=== PATIENT | male | born 1955 | race Caucasian/White ===

== ENCOUNTER 2017-10-19 09:56 | Day surgery (SDC) | payer OTHER ==
[2017-10-16 09:40] VITALS: BMI 29.8
[2017-10-19] MEDS ORDERED: BUPIVACAINE HCL/PF 2.5 MG/ML - 30 ML VIAL IJ ONE (12:55)
[2017-10-19] MEDS ORDERED: MIDAZOLAM HCL 2 MG/2 ML SINGLE DOSE VIAL ONE (13:07)
[2017-10-19] MEDS ORDERED: PROPOFOL 20 ML ONE ×2 (13:07)
[2017-10-19] MEDS ORDERED: SUCCINYLCHOLINE CHLORIDE 200 MG/10 ML VIAL ONE (13:08)
[2017-10-19] MEDS ORDERED: ceFAZolin SODIUM 1 GM VIAL ONE (13:11)
[2017-10-19] MEDS ORDERED: BUPIVACAINE HCL/PF 0.25% (2.5MG/ML) 10 ML VIAL IJ ONE (14:07)
[2017-10-19 16:13] VITALS: PULSE 68; TEMP 98
[2017-10-19 16:48] VITALS: BP 135/68
--- NOTE | 2017-10-22 19:58 | OP ---
DATE OF OPERATION: 10/19/2017 PREOPERATIVE DIAGNOSIS: 1. Left knee medial and lateral meniscal tear. 2. Left knee cartilage injury. 3. Left knee synovitis. POSTOPERATIVE DIAGNOSIS: 1. Left knee medial and lateral meniscal tear. 2. Left knee cartilage injury. 3. Left knee synovitis. PROCEDURE: 1. Left knee arthroscopy and partial meniscectomy, medial and lateral meniscus. 2. Left knee arthroscopy, chondroplasty and abrasion plasty. 3. Left knee arthroscopy and synovectomy MAJOR CPT CODES: 31738, 57736, [id number]. SURGEON: Chichi Valdez MD MEDICAID SERVICE COORDINATOR: DIANA Ponce FINDINGS: 1. Severe contraction across the patellofemoral joint causing restrictions of the patellofemoral joint. 2. Medial meniscus body and posterior horn tear. 3. Lateral meniscus diffuse tearing of the lateral meniscus. 4. Synovitis of patellofemoral medial and lateral notch area. 5. Large anterior spur, anteromedial tibial plateau. 6. No evidence of ACL. 7. Posterior labral fraying. 8. Posterior cruciate ligament fraying. 9. Multiple loose bodies. 10. Diffuse grade 4 cartilage injury, lateral joint line. 11. grade 2 to 4 cartilage injury at the patella, patellofemoral trochlea with thickened scar tissue along the medial and lateral retinaculum. PROCEDURE: Informed consent was obtained. The patient was taken to the operating room where the left lower extremity was prepped and draped in a sterile fashion. A tourniquet was placed on the left upper thigh but not inflated. Using standard arthroscopic technique, a lateral incision and portal were made which allowed for introduction of the camera into the suprapatellar bursa. This was then taken to the medial joint line where under direct visualization, a medial incision and portal were made. Excessive synovium noted in the medial, lateral, patellofemoral and notch area was removed by the up-biting shaver and Bovie cautery. This was found to bring inflammatory tissue into the joint surface, a source of joint pain and dysfunction. Probing of the medial and lateral meniscus found tears described in the findings. These were removed with an up-biting shaver and taken back to a stable rim. Grade 2-3 degenerative changes were treated with chondroplasty, removing all flaking surfaces with low setting Bovie used along the periphery. Grade 4 changes were treated with abrasion-plasty. All areas of the knee were once again re-examined. The knee was then drained. A single suture was placed on all portals. Sterile dressing was placed. The patient was transferred to the recovery room. ADDENDUM: Due to the extensive scarring along the retinacular release coming from the medial and lateral side, to allow for more motion across the patellofemoral joint and less restriction, taking the pressure off the damaged cartilage. CHICHI VALDEZ M.D. [id number]
--- NOTE | 2017-10-24 15:41 | PATH ---
Surgical Pathology Report Patient Name: HEATH ROWLEY Med. Rec. #: [id number] /Age/Gender: 1955 (Age: 62) / M Account: [id number] [facility] Taken: 10/19/2017 Received: 10/19/2017 Reported: 10/24/2017 Physicians: Adrien Pardo M.D. Specimen(s) Received LEFT KNEE SHAVINGS Clinical History Left knee internal derangement Final Diagnosis KNEE, LEFT, ARTHROSCOPIC SHAVINGS: FIBROSYNOVIAL TISSUE AND CARTILAGE. Electronically Signed Shari Angulo M.D. Gross Description Received in formalin, labeled "left knee shavings," is a 4.8 x 4.3 x 0.3 cm. aggregate of caballero-yellow soft tissue fragments. A personnel representative portion is submitted in one cassette. 10/23/201710/23/2017
== END 2017-10-19 16:00 | disposition home or self-care (01) ==
LOC: FASU 09:56 → EDBD 13:30 → FASU 16:00
PROVIDERS: ATTEND Orthopaedic Surgery
PROC: 0SBD4ZZ Excision of Left Knee Joint, Percutaneous Endoscopic Approach (ICD-10-PCS; 2017-10-19)
PROC: 0SBD4ZZ Excision of Left Knee Joint, Percutaneous Endoscopic Approach (ICD-10-PCS; principal; 2017-10-19 12:30)
DX: S83.242A Other tear of medial meniscus, current injury, left knee, initial encounter (principal); S83.282A Other tear of lateral meniscus, current injury, left knee, initial encounter; S83.8X2A Sprain of other specified parts of left knee, initial encounter; M65.862 Other synovitis and tenosynovitis, left lower leg; X58.XXXA Exposure to other specified factors, initial encounter; Y93.9 Activity, unspecified; Y92.9 Unspecified place or not applicable
CPT/HCPCS: 88304-TC; 94760

== ENCOUNTER 2019-01-23 05:49 | Inpatient (IN) | payer OTHER ==
[2019-01-13 12:07] VITALS: BMI 30.8
[~2019-01-23 05:49] MED LIST: CEFAZOLIN 2 GM in DEXTROSE 5%-WATER - 50 ML IVPB ONE; CELECOXIB 200 MG CAPSULE PO ONE; GABAPENTIN 300 MG CAPSULE (FP) PO ONE; PANTOPRAZOLE 40 MG TABLET (FP) PO ONE; TRANEXAMIC ACID 1000 MG/10 ML VIAL IVPUSH ONE; oxyCODONE HCL 10 MG SUSTAINED ACTING TABLET PO ONE
[2019-01-23] MEDS ORDERED: PANTOPRAZOLE 40 MG TABLET (FP) ONE (06:58)
[2019-01-23] MEDS ORDERED: CELECOXIB 200 MG CAPSULE ONE (06:59)
[2019-01-23] MEDS ORDERED: GABAPENTIN 300 MG CAPSULE (FP) ONE (06:59)
[2019-01-23] MEDS ORDERED: oxyCODONE HCL 10 MG SUSTAINED ACTING TABLET ONE (06:59)
[2019-01-23] MEDS ORDERED: PROPOFOL 20 ML ONE (07:11)
[2019-01-23] MEDS ORDERED: SUCCINYLCHOLINE CHLORIDE 200 MG/10 ML VIAL ONE (07:11)
[2019-01-23] MEDS ORDERED: ceFAZolin SODIUM 1 GM VIAL ONE ×4 (07:14→12:31)
[2019-01-23] MEDS ORDERED: VANCOMYCIN 1,000 MG VIAL (RESTRICTED TO ID ONLY) ONE ×2 (07:14→07:16)
[2019-01-23] MEDS ORDERED: TRANEXAMIC ACID 1000 MG/10 ML VIAL ONE ×4 (07:14→12:31)
[2019-01-23] MEDS ORDERED: MIDAZOLAM HCL 2 MG/2 ML SINGLE DOSE VIAL ONE ×3 (07:30→13:25)
[2019-01-23] MEDS ORDERED: BUPIVACAINE HCL/PF (5 MG/ML) 30 ML VIAL IJ ONE (07:31)
[2019-01-23] MEDS ORDERED: BUPIVACAINE LIPOSOME/PF (EXPAREL) 266 MG/20 ML VIAL ONE (07:31)
--- NOTE | 2019-01-23 07:49 | HP ---
Admitting History and Physical - Admission Chief Complaint: bilateral knee pain x years History of Present Illness: 63 year old male presents in regard to bilateral knees. Longstanding history of bilateral knee osteoarthritis. Patient complains of pain, limited ROM, difficulty ambulating and difficulty completing activities of daily living. Patient has failed conservative treatment measures including PO medications, activity modification, injections and an exercise program. At this point, patient would like to proceed with bilateral total knee arthroplasties, utilizing MAKOplasty. History Source: Patient - Past Surgical History Additional Past Surgical History: See written history and physical. - Advance Directives Advance Directives: Yes: Organ Donor - Smoking History Smoking history: Never smoked Have you smoked in the past 12 months: No - Alcohol/Substance Use Hx Alcohol Use: Yes (social) Home Medications - Allergies Allergies/Adverse Reactions: Allergies Allergy/AdvReac Type Severity Reaction Status Date / Time No Known Allergies Allergy Verified 01/13/19 12:00 - Home Medications Home Medications: Ambulatory Orders NK [No Known Home Medication] 01/13/19 Review of Systems - Review of Systems Musculoskeletal: reports: Crepitus (bilateral knees), Decreased ROM (bilateral knees), Joint Pain (bilateral knees), Joint Swelling (bilateral knees) Physical Examination Vital Signs: Vital Signs Temperature 97.7 F 01/23/19 06:35 Pulse Rate 56 L 01/23/19 06:35 Respiratory Rate 18 01/23/19 06:35 Blood Pressure 128/90 01/23/19 06:35 O2 Sat by Pulse Oximetry (%) Constitutional: Yes: Well Nourished, No Distress Eyes: Yes: Conjunctiva Clear HENT: Yes: Atraumatic, Normocephalic Neck: Yes: Supple Cardiovascular: Yes: Regular Rate and Rhythm Respiratory: Yes: Regular Gastrointestinal: Yes: Soft ...Rectal Exam: Yes: Deferred Musculoskeletal: Yes: Joint Stiffness (bilateral knees), Joint Swelling ( bilateral knees) Assessment/Plan 63 year old male presents in regard to bilateral knees. Longstanding history of bilateral knee osteoarthritis. Patient complains of pain, limited ROM, difficulty ambulating and difficulty completing activities of daily living. Patient has failed conservative treatment measures including PO medications, activity modification, injections and an exercise program. At this point, patient would like to proceed with bilateral total knee arthroplasties, utilizing MAKOplasty. Pros, cons, risks, benefits and alternatives of bilateral total knee arthroplasties using MAKOplasty was discussed with the patient at length. Patient confirms his understanding and consents to proceed with bilateral knee arthroplasties, utilizing MAKOplasty.
[2019-01-23] MEDS ORDERED: ONDANSETRON 4 MG/2 ML VIAL IVPUSH PRN ×2 (10:55→17:41)
[2019-01-23] MEDS ORDERED: oxyCODONE HCL 5 MG TABLET PO PRN ×2 (10:55)
[2019-01-23] MEDS ORDERED: LACTATED RINGERS SOLUTION 1,000 ML IV SCH ×2 (11:00→17:45)
[2019-01-23] MEDS ORDERED: VANCOMYCIN 1,000 MG VIAL (RESTRICTED TO ID ONLY) IVPB ONE ×2 (12:00→16:32)
[2019-01-23] MEDS ORDERED: TRANEXAMIC ACID 1000 MG/10 ML VIAL IVPUSH ONE ×2 (12:00→16:32)
[2019-01-23] MEDS ORDERED: BUPIVACAINE HCL/PF 0.5% (5MG/ML) 10 ML VIAL ONE (12:13)
[2019-01-23] MEDS ORDERED: ePHEDrine SULFATE 50 MG/1 ML AMPULE ONE (13:10)
[2019-01-23] MEDS ORDERED: KETOROLAC TROMETHAMINE 30 MG/1 ML VIAL ONE (17:22)
[2019-01-23] MEDS ORDERED: ACETAMINOPHEN INJECTION 100 ML IVPB ONE (17:22)
[2019-01-23] MEDS ORDERED: traMADol HCL 50 MG TABLET ONE (17:22)
[2019-01-23] MEDS: KETOROLAC TROMETHAMINE 30 MG/1 ML VIAL IVPUSH SCH (17:30)
[2019-01-23] MEDS ORDERED: ONDANSETRON 4 MG/2 ML VIAL ONE (17:30)
[2019-01-23] MEDS: traMADol HCL 50 MG TABLET PO SCH (17:30)
--- NOTE | 2019-01-23 17:40 | OP ---
Operative Note - Note: Operative Date: 01/23/19 Pre-Operative Diagnosis: Bilateral knee OA Operation: Bilateral BRYNN TKA Post-Operative Diagnosis: Same as Pre-op Surgeon: Real Barbosa Landscape Management Technician: Ana Brenner Anesthesia: Spinal Estimated Blood Loss (mls): 400
[2019-01-23] MEDS ORDERED: MAGNESIUM HYDROX 2400MG/30ML ORAL SUSPENSION 30 ML CUP PO PRN (17:41)
[2019-01-23] MEDS ORDERED: MAG HYDROX/AL HYDROX/SIMETH 30 ML UNIT-DOSE CUP PO PRN (17:41)
[2019-01-23] MEDS ORDERED: ACETAMINOPHEN 1000 MG/100 ML VIAL (NON FORMULARY) IVPB ONE (17:45)
[2019-01-23] MEDS: ACETAMINOPHEN 325 MG TABLET (FP) PO SCH ×3 (18:23→22:15)
[2019-01-23] MEDS: CEFAZOLIN 2 GM/D5W 2 GM/50 ML ML IVPB SCH (18:37)
[2019-01-23] MEDS ORDERED: DEXAMETHASONE SOD PHOSPHATE 10 MG/1 ML VIAL IVPB ONE (20:00)
[2019-01-23] MEDS: oxyCODONE HCL 10 MG SUSTAINED ACTING TABLET PO SCH (22:13)
[2019-01-23] MEDS: ASCORBIC ACID 500 MG TABLET (FP) PO SCH (22:14)
[2019-01-23] MEDS: ASPIRIN 325 MG TABLET PO SCH (22:14)
[2019-01-23] MEDS: CELECOXIB 200 MG CAPSULE PO SCH (22:15)
[2019-01-23] MEDS: SENNOSIDES/DOCUSATE COMBO (SENNA PLUS) TABLET (UD) PO SCH (22:15)
[2019-01-23] MEDS: GABAPENTIN 300 MG CAPSULE (FP) PO SCH (22:15)
[2019-01-24] MEDS: traMADol HCL 50 MG TABLET PO SCH ×4 (00:28→17:30)
[2019-01-24] MEDS: KETOROLAC TROMETHAMINE 30 MG/1 ML VIAL IVPUSH SCH ×4 (00:28→21:49)
[2019-01-24] MEDS: CEFAZOLIN 2 GM/D5W 2 GM/50 ML ML IVPB SCH (01:59)
[2019-01-24] MEDS: ACETAMINOPHEN 325 MG TABLET (FP) PO SCH ×4 (05:30→22:02)
--- NOTE | 2019-01-24 06:05 | SPEC ---
DATE OF OPERATION: 01/23/2019 PREOPERATIVE DIAGNOSIS: Bilateral knee osteoarthritis. POSTOPERATIVE DIAGNOSIS: Bilateral knee osteoarthritis. PROCEDURE: Bilateral total knee replacement with MAKOplasty robotic navigation. ATTENDING: Heath Yadav MD F[employer] BUYING INTERNS[employer]IP: DIANA Hein ANESTHESIA: Spinal plus sedation. ESTIMATED BLOOD LOSS: 400 mL. COMPLICATIONS: None. DISPOSITION: The patient was transferred to the PACU in stable condition. IMPLANTS USED: Bilateral size 6 Curtis Triathlon femoral components, bilateral size 7 Curtis Triathlon tibial components, bilateral 9-mm total stabilized polyethylene components, bilateral 35-mm patellar components. INDICATIONS: This is a 63-year-old male who presented to the office with severe bilateral knee pain. He had a history of a patellar tendon repair on the right and an ACL reconstruction on the left and multiple injuries. 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 The patient was therefore indicated for bilateral total knee replacements with MAKOplasty robotic navigation. The risks, benefits and alternatives to the procedure were explained to the patient in great detail and the patient elected to proceed with the surgery. On the day of surgery, the patient was taken to the operating room and placed on the OR table. Spinal anesthesia was administered by the anesthesiologist. The patient was then positioned supine on the table and all bony prominences were padded. The knee was then prepped and draped in the usual sterile fashion and intravenous antibiotics were given for infection prophylaxis. A surgical timeout was then performed with the team, and the patients identity, procedure, side, availability of implants and the administration of antibiotics was confirmed. With the knee flexed, a midline incision was made and carried down through the subcutaneous fat to the underlying retinaculum. A medial parapatellar arthrotomy was performed. This was followed by a subperiosteal dissection of the tissue off the proximal, medial tibia. A portion of fat pad was removed from under the patellar tendon, and a small portion of fat was excised off the distal supracondylar femur. Electrocautery and an Daojiaamantys bipolar sealing device were used to achieve hemostasis. The knee was then flexed further and the anterior horn of the lateral meniscus was released from the midline. Next, the anterior and posterior cruciate ligaments were transected. Grade 4 changes were noted diffusely throughout the knee. Femoral and tibial checkpoints were then placed in the appropriate location using a mallet. Two parallel bicortical self-drilling pins were placed in the tibial diaphysis after making stab incisions and bluntly dissecting down to bone. Two pins were then placed in the distal supracondylar femur. The AkeLex navigation arrays were then attached to both the femoral and tibial pins and the lower extremity was then registered to the robotic navigation device using various joint movements, as well as inputting several dozen reference points. The knee was then taken through a full range of motion with a corrective force applied. Alignment in varus/valgus as well as flexion/extension and soft tissue balance was measured in various positions. The navigation device showed a numerical and graphic representation of the soft tissue balance. The components were repositioned virtually using the software until optimal soft tissue balance was achieved on screen. Once this was accomplished, the final plan was saved and sent to the robot. Self-retaining retractors were then placed at the joint line for exposure and protection of the collateral ligaments. The robot was brought into the sterile field and registered with the navigation device. The robotic arm with attached oscillating saw blade was then used to perform femoral and tibial bone cuts as per the saved software plan. The femoral box cut was made using the appropriately sized manual cutting guide. The knee was then irrigated. Trial components were placed and the knee was taken through a full range of motion to assess soft tissue balance and alignment. The range of motion was found to be excellent and the soft tissue balance was optimal and according to plan. The knee was then put into extension and the patella everted. The synovium around the patella was circumscribed with electrocautery. A caliper was used to measure the patellar thickness and a saw was then used to resect the patella at the chondro-osseous junction. The cut surface was then sized and drilled for the appropriate patellar button, with care taken to medialize it. A trial patella was then placed and the knee was again taken through a full range of motion. The knee was found to have both good balance and good patellar tracking. All of the components were removed except the tibial base plate. The appropriate instrumentation was used to drill and punch the proximal tibia for the keel of the final component. All bony surfaces were then cleaned with pulsatile lavage and dried. Bone cement was then prepared on the back table, and final components were cemented in place in the usual fashion. Extruded cement was removed. The polyethylene trial was placed, the knee was put into extension and axial pressure was applied for compression while the cement hardened. The patellar button was similarly cemented into place. Once the cement had hardened, the knee was taken through a full range of motion to assess stability, balance and patellar tracking. This was found to be optimal and the trial polyethylene was exchanged for the appropriately sized real implant. The wound was then thoroughly irrigated with normal saline. A 3-minute dilute Betadine lavage was performed. The knee was again irrigated using a pulsatile lavage device. A periarticular injection was used to locally infiltrate the capsular tissues surrounding the implant and prosthesis. Then No. 1 Polysorb and 0 V-Loc 180 barbed sutures were used to close the arthrotomy. Then No. 1 Polysorb and 2-0 V-Loc 90 sutures were used in the subcutaneous tissues. Then 4-0 undyed Vicryl and Dermabond skin adhesive was used to close the stab incisions made for the navigation pins. The skin was closed using both 3-0 V-Loc 90 suture in a running subcuticular fashion and Dermabond skin adhesive. Once this was completed a sterile Aquacel dressing and compressive Carlos wrap was applied. The patient was then awakened and taken to the PACU in stable condition. ADDENDUM: A bilateral procedure was performed. The above procedure was performed identically on both sides. In between sides the patient was reprepped and redraped and entirely new sterile instrumentation was brought into the room. In addition, a new spinal was performed by the anesthesia team and this patient was straight catheterized and 700 mL of urine was withdrawn. HEATH YADAV M.D. [id number]
[2019-01-24 07:01] LABS: HEMATOCRIT 38.9 % (35.4-49); HEMOGLOBIN 13.1 GM/dl (11.7-16.9); MCH 32.6 pg (25.7-33.7); MCHC 33.7 g/dl (32.0-35.9); MEAN CELL VOLUME 96.9 fl (80-96); MEAN PLT VOLUME 8.1 fl (7.5-11.1); PLATELET COUNT 201 K/MM3 (134-434); RBC 4.02 M/mm3 (4.00-5.60); RDW 13.1 % (11.9-15.9); WHITE BLOOD COUNT 10.3 K/mm3 (4.0-10.8)
[2019-01-24 07:09] LABS: ANION GAP 9 MMOL/L (8-16); BLOOD UREA NITROGEN 18 mg/dl (7-18); CALCIUM 8.7 mg/dl (8.5-10); CHLORIDE 104 mmol/L (98-107); CO2 22 mmol/L (21-32); GLUCOSE,RANDOM 149 mg/dl (74-106); POTASSIUM 4.5 mmol/L (3.5-5.1); SODIUM 135 mmol/L (136-145)
[2019-01-24] MEDS: CELECOXIB 200 MG CAPSULE PO SCH ×2 (10:01→21:48)
[2019-01-24] MEDS: SENNOSIDES/DOCUSATE COMBO (SENNA PLUS) TABLET (UD) PO SCH ×2 (10:02→21:48)
[2019-01-24] MEDS: ASCORBIC ACID 500 MG TABLET (FP) PO SCH ×2 (10:02→21:48)
[2019-01-24] MEDS: MULTIVITAMINS (DAILY MVI) TABLET (FP) PO SCH (10:02)
[2019-01-24] MEDS: PANTOPRAZOLE 40 MG TABLET (FP) PO SCH (10:02)
[2019-01-24] MEDS: GABAPENTIN 300 MG CAPSULE (FP) PO SCH ×2 (10:02→21:48)
[2019-01-24] MEDS: ASPIRIN 325 MG TABLET PO SCH ×2 (10:04→21:48)
[2019-01-24] MEDS: oxyCODONE HCL 10 MG SUSTAINED ACTING TABLET PO SCH ×2 (10:04→21:48)
--- NOTE | 2019-01-24 13:06 | PN ---
Progress Note (short form) - Note Progress Note: POD1 s/p B/L TKR under block and GA. Doing well, ambulating, no complaints of pain. No anesthetic issues/complications.
--- NOTE | 2019-01-24 20:07 | PN ---
Progress Note (short form) - Note Progress Note: Pt seen and examined. Doing well. AVSS Selected Entries 01/24/19 01/24/19 18:00 19:45 Temperature 98.6 F Pulse Rate 67 Respiratory 16 18 Rate Blood Pressure 102/53 L O2 Sat by Pulse 98 Oximetry (%) Oxygen Delivery Room Air Method Laboratory Tests 01/24/19 01/24/19 06:47 06:47 WBC 10.3 Hgb 13.1 Hct 38.9 Plt Count 201 Sodium 135 L Potassium 4.5 Chloride 104 Carbon Dioxide 22 Anion Gap 9 BUN 18 Creatinine 1.0 Creat Clearance w eGFR 75.23 Calcium 8.7 Gen: NAD B/L LE: c/d/i, NVID A/P POD#1 s/p B/L BRYNN CAMACHO PT/OOB D/C planning to [place]
--- NOTE | 2019-01-24 20:08 | DS ---
Physical Examination Vital Signs: Vital Signs Temperature 98.7 F 01/24/19 14:19 Pulse Rate 70 01/24/19 14:19 Respiratory Rate 18 01/24/19 19:45 Blood Pressure 103/55 L 01/24/19 14:19 O2 Sat by Pulse Oximetry (%) 94 L 01/24/19 14:19 Labs: CBC, BMP 01/24/19 06:47 01/24/19 06:47 Discharge Summary Reason For Visit: OSTEOARTHRITIS BILATERAL KNEES Current Active Problems Bilateral primary osteoarthritis of knee (Acute) Procedures: Principal: bilateral BRYNN TKA Hospital Course: Admitted for elective surgery. Procedure performed without complications. Pt received postoperative antibiotic prophylaxis and DVT ppx. Ambulated with physical therapy. Stable for discharge home with outpatient followup. Condition: Stable - Instructions Diet, Activity, Other Instructions: Dr. Barbosa - Knee Replacement Instructions Keep the Aquacel dressings on until removed by Dr. Barbosa in 10-14 days - they are antibacterial and waterproof and you can shower with them on. Call the office for a follow-up appointment with Dr. Barbosa in 10-14 days. Take one Aspirin 325mg daily for 6 weeks to prevent blood clots in your legs. Take one Pantoprazole 40mg daily for 6 weeks to protect against heartburn and ulcers. Take Cephalexin (antibiotic) 3x/day for 10 days to help prevent skin infection. Take Celebrex 200mg twice daily for 30 days to reduce swelling and inflammation. Take a multivitamin, stool softener, and extra Vitamin C supplement daily. For pain: *Mild pain (1-3/10): Take 1 Tramadol tablet every 4 hours as needed. Moderate pain (4-6/10): Take 1 Tramadol tablet and 1 Percocet tablet every 4 hours as needed. Severe pain (7-10/10): Take 1 Tramadol tablet and 2 Percocet tablets every 4 hours as needed. Activity: You can put as much weight on the operative leg as you want. Always use a walker or cane for balance and to prevent falls. Expect to see swelling/bruising from your knees all the way down to your toes. Wear the compression stockings during the day to minimize how much swelling there is in your foot/ankle. Don't wear the stockings at night. Disposition: TRANSFER ACUTE CARE/OTHER HOSP - Home Medications Comprehensive Discharge Medication List: Ambulatory Orders Ascorbic Acid [Vitamin C -] 500 mg PO BID tablet 01/24/19 Aspirin [ASA -] 325 mg PO BID tablet 01/24/19 Celecoxib [CeleBREX -] 200 mg PO BID #60 capsule 01/24/19 Cephalexin Monohydrate [Keflex -] 500 mg PO TID #30 capsule 01/24/19 Multivitamins [Multivit ([facility] Formulary)] 1 tab PO DAILY tab 01/24/19 Oxycodone HCl/Acetaminophen [Percocet 5-325 mg Tablet] 1 - 2 tab PO Q4H PRN #60 tablet MDD 10 01/24/19 Pantoprazole Sodium [Protonix -] 40 mg PO DAILY #40 tablet.ec 01/24/19 Sennosides/Docusate Sodium [Pericolace -] 1 tablet PO BID tablet 01/24/19 traMADol HCL [Ultram -] 50 mg PO Q4H PRN #60 tablet MDD 6 01/24/19
[2019-01-25] MEDS: traMADol HCL 50 MG TABLET PO SCH ×5 (00:54→23:17)
[2019-01-25] MEDS: KETOROLAC TROMETHAMINE 30 MG/1 ML VIAL IVPUSH SCH ×4 (02:52→14:47)
[2019-01-25] MEDS: ACETAMINOPHEN 325 MG TABLET (FP) PO SCH ×4 (06:06→23:18)
[2019-01-25 08:16] LABS: HEMATOCRIT 32.3 % (35.4-49); HEMOGLOBIN 11.1 GM/dl (11.7-16.9); MCH 33.5 pg (25.7-33.7); MCHC 34.3 g/dl (32.0-35.9); MEAN CELL VOLUME 97.7 fl (80-96); MEAN PLT VOLUME 8.7 fl (7.5-11.1); PLATELET COUNT 154 K/MM3 (134-434); RDW 13.3 % (11.9-15.9); WHITE BLOOD COUNT 8.3 K/mm3 (4.0-10.8)
[2019-01-25 08:38] LABS: ANION GAP 7 MMOL/L (8-16); BLOOD UREA NITROGEN 21 mg/dl (7-18); CALCIUM 8.3 mg/dl (8.5-10); CHLORIDE 105 mmol/L (98-107); CO2 24 mmol/L (21-32); GLUCOSE,RANDOM 102 mg/dl (74-106); POTASSIUM 3.8 mmol/L (3.5-5.1); SODIUM 136 mmol/L (136-145)
[2019-01-25] MEDS: oxyCODONE HCL 10 MG SUSTAINED ACTING TABLET PO SCH ×2 (09:26→21:23)
[2019-01-25] MEDS: SENNOSIDES/DOCUSATE COMBO (SENNA PLUS) TABLET (UD) PO SCH ×2 (09:26→21:22)
[2019-01-25] MEDS: ASCORBIC ACID 500 MG TABLET (FP) PO SCH ×2 (09:26→21:22)
[2019-01-25] MEDS: CELECOXIB 200 MG CAPSULE PO SCH ×2 (09:27→21:22)
[2019-01-25] MEDS: GABAPENTIN 300 MG CAPSULE (FP) PO SCH ×2 (09:27→21:23)
[2019-01-25] MEDS: ASPIRIN 325 MG TABLET PO SCH ×2 (09:27→21:22)
[2019-01-25] MEDS: MULTIVITAMINS (DAILY MVI) TABLET (FP) PO SCH (09:27)
[2019-01-25] MEDS: PANTOPRAZOLE 40 MG TABLET (FP) PO SCH (09:27)
--- NOTE | 2019-01-25 14:50 | PN ---
Progress Note (short form) - Note Progress Note: Pt seen and examined. Doing well. AVSS Selected Entries 01/25/19 01/25/19 06:25 08:15 Temperature 97.7 F Pulse Rate 62 Respiratory 17 Rate Blood Pressure 101/62 O2 Sat by Pulse 96 Oximetry (%) Oxygen Delivery Room Air Method Laboratory Tests 01/25/19 01/25/19 07:00 07:00 WBC 8.3 Hgb 11.1 L Hct 32.3 L D Plt Count 154 D Sodium 136 Potassium 3.8 Chloride 105 Carbon Dioxide 24 Anion Gap 7 L BUN 21 H Creatinine 1.0 Creat Clearance w eGFR 75.23 Random Glucose 102 Calcium 8.3 L Gen: NAD B/L LE: c/d/i, NVID A/P POD#2 s/p B/L BRYNN CAMACHO PT/OOB D/C planning to [place] Sunday
[2019-01-26] MEDS: ACETAMINOPHEN 325 MG TABLET (FP) PO SCH (06:21)
[2019-01-26] MEDS: traMADol HCL 50 MG TABLET PO SCH ×3 (06:21→18:34)
[2019-01-26] MEDS: MULTIVITAMINS (DAILY MVI) TABLET (FP) PO SCH (09:43)
[2019-01-26] MEDS: ASCORBIC ACID 500 MG TABLET (FP) PO SCH ×2 (09:43→21:10)
[2019-01-26] MEDS: SENNOSIDES/DOCUSATE COMBO (SENNA PLUS) TABLET (UD) PO SCH ×2 (09:43→21:10)
[2019-01-26] MEDS: PANTOPRAZOLE 40 MG TABLET (FP) PO SCH (09:43)
[2019-01-26] MEDS: ASPIRIN 325 MG TABLET PO SCH ×2 (09:43→21:10)
[2019-01-26] MEDS: GABAPENTIN 300 MG CAPSULE (FP) PO SCH (09:44)
[2019-01-26] MEDS: CELECOXIB 200 MG CAPSULE PO SCH ×2 (09:44→21:10)
[2019-01-26] MEDS: oxyCODONE HCL 10 MG SUSTAINED ACTING TABLET PO SCH (09:44)
[2019-01-26] MEDS ORDERED: ONDANSETRON 4 MG TABLET PO PRN (20:16)
[2019-01-26] MEDS ORDERED: HYDROCORTISONE 1% TOPICAL CREAM 30 GM TUBE TP PRN (20:17)
[2019-01-26] MEDS ORDERED: diphenhydrAMINE HCL 25 MG CAPSULE (FP) PO ONE (20:30)
[2019-01-27] MEDS: traMADol HCL 50 MG TABLET PO SCH ×3 (05:46→12:41)
[2019-01-27 06:31] VITALS: BP 117/69; PULSE 58; TEMP 98.4
[2019-01-27] MEDS ORDERED: PT OWN MED DRAWER 7, Y5N ONE (09:04)
[2019-01-27] MEDS: CELECOXIB 200 MG CAPSULE PO SCH (09:07)
[2019-01-27] MEDS: PANTOPRAZOLE 40 MG TABLET (FP) PO SCH (09:08)
[2019-01-27] MEDS: MULTIVITAMINS (DAILY MVI) TABLET (FP) PO SCH (09:08)
[2019-01-27] MEDS: ASCORBIC ACID 500 MG TABLET (FP) PO SCH (09:09)
[2019-01-27] MEDS: ASPIRIN 325 MG TABLET PO SCH (09:09)
[2019-01-27] MEDS: SENNOSIDES/DOCUSATE COMBO (SENNA PLUS) TABLET (UD) PO SCH (09:12)
--- NOTE | 2019-01-27 15:22 | PATH ---
Surgical Pathology Report Patient Name: HEATH ROWLEY Med. Rec. #: [id number] /Age/Gender: 1955 (Age: 63) / M Account: [id number] Location: [facility] MED-SURG Taken: 01/23/2019 Received: 01/23/2019 Reported: 01/27/2019 Physicians: Heath Barbosa M.D. Specimen(s) Received A: BONE RIGHT KNEE B: BONE LEFT KNEE C: SCREW LEFT KNEE Clinical History Osteoarthritis bilateral knees Final Diagnosis A. BONE, KNEE, RIGHT, TOTAL KNEE REPLACEMENT MAKOPLASTY: BONE WITH DEGENERATIVE JOINT DISEASE, DENSE FIBROCONNECTIVE TISSUE, AND REACTIVE SYNOVIUM. B. BONE, KNEE, LEFT, TOTAL KNEE REPLACEMENT MAKOPLASTY: BONE WITH DEGENERATIVE JOINT DISEASE, DENSE FIBROCONNECTIVE TISSUE, AND REACTIVE SYNOVIUM. C. KNEE, LEFT, SCREW, REMOVAL: SURGICAL HARDWARE. MACROSCOPIC DIAGNOSIS. Electronically Signed Beba Walker M.D. Gross Description A. Received in formalin labeled "bone right knee," is a 15.0 x 12.5 x 2.0 cm aggregate of multiple portions of bone and soft tissue. The tibial plateau measures 8.7 x 6.0 x 1.5 cm. There are multiple areas of eburnation present, measuring up to 2.5 cm in greatest dimension. The remaining articular surfaces are caballero-brown and diffusely granular. The underlying trabecular bone is yellow and hard. Recreational Assistant sections are submitted in one cassette, following decalcification. B. Received in formalin labeled "bone left knee," is a 14.0 x 10.5 x 2.0 cm aggregate of multiple portions of bone and soft tissue, consistent with knee bones. There are multiple areas of eburnation present, measuring up to 2.4 cm in greatest dimension. The remaining articular surfaces are caballero-yellow and diffusely granular. The underlying trabecular bone is yellow and hard. Recreational Assistant sections are submitted in one cassette, following decalcification. C. Received fresh labeled "screw left knee," is a 2.0 cm in length drummond metallic screw. No soft tissue is present. No sections are submitted, gross only. /01/24/2019 saudi01/24/2019
== END 2019-01-27 12:02 | disposition home or self-care (01) | DRG 462 ==
LOC: FM/S 05:49
PROVIDERS: ADMIT Student in an Organized Health Care Education/Training Program; ATTEND Student in an Organized Health Care Education/Training Program
PROC: 0SRC0J9 Replacement of Right Knee Joint with Synthetic Substitute, Cemented, Open Approach (ICD-10-PCS; 2019-01-23)
PROC: 8E0Y0CZ Robotic Assisted Procedure of Lower Extremity, Open Approach (ICD-10-PCS; 2019-01-23)
PROC: 0SRD0J9 Replacement of Left Knee Joint with Synthetic Substitute, Cemented, Open Approach (ICD-10-PCS; principal; 2019-01-23 09:15)
DX: M17.0 Bilateral primary osteoarthritis of knee (principal)
CPT/HCPCS: 36415; 73560-TC-LT-FY; 73560-TC-RT-FY; 80048; 85027; 86850; 86900; 86901; 88300-TC; 88304-TC; 88311-TC; 94760; 97116-GP; 97163-GP; J0131; J1100